=== PATIENT | male | born 2000 | race Caucasian/White ===

== ENCOUNTER 2019-09-06 19:20 | Emergency (ER) | payer OTHER ==
[2019-09-06] MEDS ORDERED: NORMAL SALINE 1000 ML 1,000 ML IV ONE (20:01)
[2019-09-06] MEDS ORDERED: METOCLOPRAMIDE HCL INJ/PF 10 MG/2 ML SDV IV ONE (20:02)
[2019-09-06] MEDS ORDERED: DIPHENHYDRAMINE HCL 50 MG/ML VIAL IV ONE (20:02)
--- NOTE | 2019-09-06 20:04 | ER Document Report ---
ED Medical Screen (RME) - General Chief Complaint: Nausea/Vomiting Stated Complaint: CHILLS,NAUSEA,BODY TINGLING Time Seen by Provider: 09/06/19 19:56 Notes: HPI: 19-year-old male presenting to the emergency department with multiple complaints. Patient states that he went to driving his car this afternoon and developed numbness and tingling in the right leg that extended from the toes up to the hip and encompassed the entire right side of his body including his face no slurred speech no vision changes. Patient then developed a frontal headache which persists. He had 2 episodes of vomiting. Has not had fever or recent illness. No history of migraine headaches. I have greeted and performed a rapid initial assessment of this patient. A comprehensive ED assessment and evaluation of the patient, analysis of test results and completion of the medical decision making process will be conducted by additional ED providers PHYSICAL EXAMINATION: GENERAL: Well-appearing, well-nourished and in mild acute distress. HEAD: Atraumatic, normocephalic. EYES: sclera anicteric, conjunctiva are normal. Mild photophobia ENT: Moist mucous membranes. NECK: Normal range of motion LUNGS: Normal work of breathing, clear to auscultation HEART: 2+ radial pulses bilaterally, regular rate and rhythm ABD: limited by positioning for exam in triage. EXTREMITIES: no pitting or edema. No cyanosis. NEUROLOGICAL: No focal neurological deficits. Moves all extremities spontaneously and on command. Strength equal 5/5 bilateral upper and lower extremities. PSYCH: Anxious mood SKIN: Warm, Dry, normal turgor, no rashes or lesions noted. TRAVEL OUTSIDE OF THE [place] IN LAST 30 DAYS: No - Related Data Allergies/Adverse Reactions: No Known Allergies Allergy (Unverified 09/06/19 19:53) Physical Exam - Vital signs Vitals: Temp Pulse Resp BP Pulse Ox 97.3 F 109 H 18 163/93 H 100 09/06/19 19:48 09/06/19 19:48 09/06/19 19:48 09/06/19 19:48 09/06/19 19:48 Course - Vital Signs Vital signs: Temp Pulse Resp BP Pulse Ox 97.3 F 109 H 18 163/93 H 100 09/06/19 19:48 09/06/19 19:48 09/06/19 19:48 09/06/19 19:48 09/06/19 19:48
[2019-09-06 20:43] LABS: ABSOLUTE EOSINOPHILS # (AUTO) 0.2 10^3/uL (0.0-0.6); ABSOLUTE LYMPHOCYTES (AUTO) 4.7 10^3/uL (0.5-4.7); ABSOLUTE MONOCYTES (AUTO) 0.7 10^3/uL (0.1-1.4); ABSOLUTE NEUT (AUTO) 3.5 10^3/uL (1.7-8.2); BASOPHILS % (AUTO) 0.2 % (0-2); EOSINOPHILS % (AUTO) 1.8 % (0-6); HEMATOCRIT 45.8 % (37.9-51.0); HEMOGLOBIN 15.5 g/dL (13.5-17.0); LYMPHOCYTES % (AUTO) 51.7 % (13-45); MEAN CORPUSCULAR HEMOGLOBIN 28.9 pg (27.0-33.4); MEAN CORPUSCULAR HGB CONC 33.9 g/dL (32.0-36.0); MEAN CORPUSCULAR VOLUME 85 fl (80-97); PLATELET COUNT 218 10^3/uL (150-450); RED BLOOD COUNT 5.38 10^6/uL (4.35-5.55); RED CELL DISTRIBUTION WIDTH 13.6 % (11.5-14.0); SEGMENTED NEUTROPHILS % (AUTO) 38.3 % (42-78); TOTAL CELLS COUNTED % (AUTO) 100 %; WHITE BLOOD COUNT 9.1 10^3/uL (4.0-10.5)
--- NOTE | 2019-09-06 20:53 | RADIOLOGY REPORT (SQ) ---
EXAM DESCRIPTION: [facility]: CT HEAD WITHOUT IV CONTRAST CLINICAL HISTORY: 19 years Male; right headache/numbness; TECHNIQUE: Noncontrast CT head. All CT scans at this facility use dose modulation, iterative reconstruction, and/or weight based dosing when appropriate to reduce radiation dose to as low as reasonably achievable. COMPARISON: None. FINDINGS: Goss matter, white matter, ventricles, and cisterns are within normal limits. No acute hemorrhage or mass effect. Chronic mucosal thickening in the floor both maxillary sinuses, but no air-fluid levels. No mastoid effusion. Visualized portions of the calvarium are within normal limits. IMPRESSION: 1. No acute intracranial findings. 2. Bilateral chronic maxillary sinusitis
[2019-09-06 21:06] LABS: ALBUMIN 4.6 g/dL (3.5-5.0); ALKALINE PHOSPHATASE 81 U/L (38-126); ANION GAP 11 (5-19); ASPARTATE AMINO TRANSFERASE 24 U/L (17-59); BILIRUBIN,DIRECT 0.3 mg/dL (0.0-0.4); BILIRUBIN,TOTAL 0.6 mg/dL (0.2-1.3); BLOOD UREA NITROGEN 17 mg/dL (7-20); CALCIUM 9.2 mg/dL (8.4-10.2); CARBON DIOXIDE 26 mmol/L (22-30); CHLORIDE 101 mmol/L (98-107); GLUCOSE 106 mg/dL (75-110); POTASSIUM 3.8 mmol/L (3.6-5.0); TOTAL PROTEIN 7.7 g/dL (6.3-8.2)
[2019-09-07] MEDS ORDERED: DIPHENHYDRAMINE HCL 50 MG/ML VIAL ONE (01:37)
[2019-09-07] MEDS ORDERED: METOCLOPRAMIDE HCL INJ/PF 10 MG/2 ML SDV ONE (01:37)
[2019-09-07] MEDS ORDERED: LIDOCAINE 1% INJ-PF (10 MG/ML) 30 ML SDV INJ ONE (02:47)
--- NOTE | 2019-09-07 02:52 | ER Document Report ---
ED General - General Chief Complaint: Nausea/Vomiting Stated Complaint: CHILLS,NAUSEA,BODY TINGLING Time Seen by Provider: 09/06/19 19:56 Mode of Arrival: Ambulatory Information source: Patient TRAVEL OUTSIDE OF THE [place] IN LAST 30 DAYS: No - HPI Onset: Other - yesterday Onset/Duration: Sudden Quality of pain: Pressure Severity: Severe Pain Level: 5 Context: started while patient was driving his car Associated symptoms: Headache, Nausea, Vomiting, Other - right sided numbness and tingling, neck stiffness Exacerbated by: Denies Relieved by: Denies Similar symptoms previously: No Recently seen / treated by doctor: No Notes: 19 year old male with no known PMH here for sudden onset of a headache, neck stiffness, right sided body numbness and tingling, nausea, vomiting, and sweating. The patient says the headache has eased off significantly since being in the ER but he still has one. The patient is able to move his neck in all directions but he says it feels stiff. The patient says his nausea has improved with the zofran he was given before I evaluated him. - Related Data Allergies/Adverse Reactions: No Known Allergies Allergy (Unverified 09/06/19 19:53) Past Medical History - Social History Smoking Status: Never Smoker Frequency of alcohol use: Occasional Drug Abuse: None Lives with: Alone Family History: Reviewed & Not Pertinent Patient has suicidal ideation: No Patient has homicidal ideation: No - Past Medical History Cardiac Medical History: Reports: None Pulmonary Medical History: Reports: None EENT Medical History: Reports: None Neurological Medical History: Reports: None Endocrine Medical History: Reports: None Renal/ Medical History: Reports: None Malignancy Medical History: Reports None GI Medical History: Reports: None Musculoskeletal Medical History: Reports None Skin Medical History: Reports None Psychiatric Medical History: Reports: None Review of Systems - Review of Systems Constitutional: Malaise, Weakness EENT: No symptoms reported Cardiovascular: No symptoms reported Respiratory: No symptoms reported Gastrointestinal: Nausea, Vomiting Genitourinary: No symptoms reported Male Genitourinary: No symptoms reported Musculoskeletal: No symptoms reported Skin: No symptoms reported Hematologic/Lymphatic: No symptoms reported Neurological/Psychological: Headaches, Numbness - of right side of body, Tingling - of right side of body, Other - trouble breathing briefly -: Yes All other systems reviewed and negative Physical Exam - Vital signs Vitals: Temp Pulse Resp BP Pulse Ox 97.3 F 109 H 18 163/93 H 100 09/06/19 19:48 09/06/19 19:48 09/06/19 19:48 09/06/19 19:48 09/06/19 19:48 - Notes Notes: GENERAL: Well-appearing, well-nourished and in no acute distress. HEAD: Atraumatic, normocephalic. EYES: Pupils equal round and reactive to light, extraocular movements intact, sclera anicteric, conjunctiva are normal. ENT: Nares patent, oropharynx clear without exudates. Moist mucous membranes. NECK: Normal range of motion, supple without lymphadenopathy or JVD. LUNGS: Breath sounds clear to auscultation bilaterally and equal. No wheezes rales or rhonchi. HEART: Regular rate and rhythm without murmurs, rubs or gallops. ABDOMEN: Soft, nontender, normoactive bowel sounds. No guarding, no rebound. No masses appreciated. EXTREMITIES: Normal range of motion, no pitting or edema. No clubbing or cyanos is. NEUROLOGICAL: Cranial nerves II through XII grossly intact. Normal speech, normal gait. PSYCH: Normal mood, normal affect. SKIN: Warm, Dry, normal turgor, no rashes or lesions noted. Course - Re-evaluation Re-evalutation: 09/07/19 06:31 The patient likely has viral meningitis since he had an LP here in the ER with an elevated opening pressure of 36 and elevated protein in the CSF. The cell count and gram stain were not back prior to my shift change. LP performed to diagnose likely viral meninigits and to rule out SAH since the headache the patient had was all of a sudden and the worst of his life. Patients head CT showed no acute process. Patient fel much better after fluids, Reglan, Benadryl, Toradol. Patient told to follow up with his PCP. The patient's right sided numbness and tingling is odd. Patient should follow up with Neurology if his CSF cell count is not consistent with viral meningitis. - Vital Signs Vital signs: Temp Pulse Resp BP Pulse Ox 97.8 F 67 18 137/69 H 98 09/07/19 04:00 09/07/19 04:00 09/07/19 04:00 09/07/19 04:00 09/07/19 04:00 - Laboratory Result Diagrams: 09/06/19 20:11 09/06/19 20:11 Laboratory results interpreted by me: 09/06/19 09/07/19 20:11 04:15 Lymph % (Auto) 51.7 H Seg Neutrophils % 38.3 L CSF Total Protein 71 H - Diagnostic Test Radiology reviewed: Image reviewed, Reports reviewed Procedures - Lumbar Puncture Lumbar puncture Consent obtained: Yes Lumbar puncture pre-procedure: Sterile PPE donned, Betadine prep applied, Sterile drapes applied Patient position: Lying Anesthetic type: 1% Lidocaine mL's of anesthetic: 5 Amount/type of drainage: clear fluid, 2cc in each vial (4 vials total) Number of attempts: 1 Complications: No Notes: 09/07/19 04:21 Open pressure with patient laying on his left side wsa 36. Discharge - Discharge Clinical Impression: Viral meningitis, unspecified Condition: Stable Disposition: HOME, SELF-CARE Instructions: Viral Meningitis ([facility]) Additional Instructions: Follow up with your primary care care doctor and consider follow up with a Neurologist. Use Tylenol and Motrin for headaches and pains. Drink plenty of fluids in the days to come.
[2019-09-07 05:34] LABS: GLUCOSE,CSF 60 mg/dL (40-70); PROTEIN,CSF 71 mg/dL (12-60)
[2019-09-07 05:41] LABS: A TYPE INFLUENZA AG NEGATIVE (NEGATIVE); B INFLUENZA AG NEGATIVE (NEGATIVE); URINE AMPHETAMINES SCREEN NEGATIVE; URINE BARBITURATES SCREEN NEGATIVE; URINE BENZODIAZEPINES SCREEN NEGATIVE; URINE COCAINE SCREEN NEGATIVE; URINE MARIJUANA (THC) SCREEN NEGATIVE; URINE METHADONE SCREEN NEGATIVE; URINE PHENCYCLIDINE SCREEN NEGATIVE
[2019-09-07 05:44] LABS: INTERNATIONAL RATION (INR) 1.01; PROTHROMBIN TIME 13.3 SEC (11.4-15.4)
[2019-09-07] MEDS ORDERED: KETOROLAC TROMETHAMINE INJ/PF 30 MG/1 ML SDV IV ONE (06:30)
[2019-09-07 06:49] LABS: APPEARANCE ALL TUBES CLEAR; COLOR ALL TUBES COLORLESS; CSF TUBE NUMBER 1; RED BLOOD CELL,CSF 0 /uL (0-10); VOLUME TUBE 3 2.5 CC; VOLUME TUBE 4 2.5 CC
[2019-09-07 06:50] LABS: APPEARANCE ALL TUBES CLEAR; COLOR ALL TUBES COLORLESS; CSF TUBE NUMBER 4; WHITE BLOOD CELL,CSF 32 /uL (0-5)
[2019-09-07 06:51] LABS: RED BLOOD CELL,CSF 0 /uL (0-10); VOLUME TUBE 3 2.5 CC; VOLUME TUBE 4 2.5 CC
[2019-09-07 06:52] LABS: WHITE BLOOD CELL,CSF 44 /uL (0-5)
[2019-09-07 06:56] LABS: MONONUCLEAR CELLS CSF 100 %; POLYMORPHONUCLEAR CELLS CSF 0 %
[2019-09-07 06:58] LABS: MONONUCLEAR CELLS CSF 100 %; POLYMORPHONUCLEAR CELLS CSF 0 %
[2019-09-07 07:15] VITALS: BP 141/81
== END 2019-09-07 08:09 | disposition home or self-care (01) ==
LOC: ER 19:20
PROC: 009U3ZX Drainage of Spinal Canal, Percutaneous Approach, Diagnostic (ICD-10-PCS; principal; 2019-09-06)
DX: A87.9 Viral meningitis, unspecified (principal); R11.2 Nausea with vomiting, unspecified; R20.0 Anesthesia of skin; R51 Headache; M43.6 Torticollis; R61 Generalized hyperhidrosis
CPT/HCPCS: 36415; 70450; 80053; 80307; 82945; 84157; 85025; 85610; 87070; 87205; 87804; 89050; J1200; J1885; J2765; J3490; J7030